=== PATIENT | female | born 1990 | race Caucasian/White ===

== ENCOUNTER 2024-10-23 19:51 | Emergency (ER) | payer MEDICAID, SELFPAY ==
--- NOTE | 2024-10-23 | ECG_ITS ---
Test Reason : syncope/abd pain Blood Pressure : */* mmHG Vent. Rate : 107 BPM Atrial Rate : 107 BPM P-R Int : 118 ms QRS Dur : 86 ms QT Int : 400 ms P-R-T Axes : 77 61 31 degrees QTcB Int : 534 ms Sinus tachycardia Prolonged QT Abnormal ECG No previous ECGs available Referred By: Generic ED Physician Electronically Signed By: JADE ALY MD
--- NOTE | ~2024-10-23 | CT_ITS ---
CLINICAL HISTORY: Lower abd pain and tenderness, hx of trena CT abdomen and pelvis with contrast Comparison: None provided Findings: No consolidation or effusion. Small bilateral renal cysts are present. No hydronephrosis. Gallbladder is absent. Liver, spleen and pancreas are unremarkable. No bowel wall thickening. No bowel obstruction, pneumoperitoneum, or pneumatosis. T-shaped IUD within the uterus in expected position. No acute fracture. IMPRESSION: No acute findings. This document has been electronically signed by: Andre Brown MD on 10/24/2024 00:57:38
[2024-10-23 20:02] VITALS: BP 142/84; BP 159/94; PULSE 116; PULSE 117; RESP 20; TEMP 36.3; O2SAT 100; O2SAT 99; BMI 24.0
[2024-10-23 21:10] LABS: Alanine Aminotransferase 68 U/L (0-31); Albumin Level 5.7 g/dL (3.5-5.0); Alkaline Phosphatase 99 U/L (39-117); Anion Gap 21 (12-20); Aspartate Amino Transferase 81 U/L (5-31); Blood Urea Nitrogen 21 mg/dL (9-16); Calcium 9.9 mg/dL (8.4-10.2); Carbon Dioxide 24 mmol/L (22-29); Chloride 98 mmol/L (96-108); Creatinine Clr Calc Pharmacy 92.0; Estimated Glomerular Filt Rate > 60; Potassium 2.7 mmol/L (3.3-5.1); Sodium 140 mmol/L (135-145); Total Protein 8.8 g/dL (6.5-8.0)
--- NOTE | 2024-10-23 21:22 | ED_ITS ---
HPI - General Adult General Chief complaint: Abdominal Pain Stated complaint: vomiting x3 days Time Seen by Provider: 10/23/24 21:19 History of Present Illness ED Provider: Sara THOMAS narrative: The patient is a 34-year-old female who lives in the [facility]. She is visiting this weekend with some friends. She is traveling with her . The patient states that she has been having problems with intermittent abdominal pains for a long time. she had her gallbladder removed in March of 2024 to see if this would help these episodes of pain. She has continued to have episodes of pain since the surgery. She has had approximately 4 or 5 episodes of pain since the surgery. Her last episode was a few weeks ago. At that time she was seen at the emergency room at [facility] in [place]. This having symptoms of abdominal pain, nausea, and vomiting for approximately 4 days. She finally came to the emergency department for evaluation tonight. No fever. This episode is similar to previous episodes. Related Data Previous Rx's ?Medication ?Instructions ?Recorded ondansetron 4 mg disintegrating 4 mg PO Q6H PRN nausea and 10/24/24 tablet vomiting #10 tabs potassium chloride 10 mEq 40 meq (4 x 10 mEq) PO BID 7 days 10/24/24 capsule,extended release #56 caps Allergies Allergy/AdvReac Type Severity Reaction Status Date / Time ketorolac (From Toradol) AdvReac Unknown Verified 10/23/24 22:29 Review of Systems 2 Review of Systems: Yes all other systems are reviewed and are negative Physical Exam ED Vital Signs: Vital Signs - 24 hr 10/23/24 20:02 10/23/24 23:39 10/23/24 23:43 Temperature 97.3 F 98.4 F Pulse Rate 116 H 88 Respiratory Rate 20 17 17 Blood Pressure 159/94 H 132/78 Pulse Oximetry 99 99 Oxygen Delivery Method Room Air Room Air 10/24/24 02:20 10/24/24 02:20 Temperature 98.4 F 98.4 F Pulse Rate 81 81 Respiratory Rate 17 17 Blood Pressure 131/78 131/78 Pulse Oximetry 99 99 Oxygen Delivery Method Room Air Room Air BMI result Body Mass Index 24.0 Const Other: The patient is a 34-year-old woman who was awake and alert. She looks as if she might be somewhat uncomfortable. Orientation/consciousness: patient oriented x3 HENMT Other: The face is symmetrical. ?Mucous membranes moist. Eyes Other: Pupils are round equal, conjunctivae are clear, extraocular movements intact Neck Neck: Yes normal visual inspection and Yes full ROM Resp Effort & Inspection: normal respiratory effort Auscultation: clear to auscultation bilaterally Cardio Rate: regular rate Rhythm: regular rhythm Heart sounds: S1 normal heart sound present and S2 normal heart sound present GI Other: The patient has some lower abdominal tenderness without definite rebound or guarding. Back/Spine/Pelvis Other: No CVA percussion tenderness Skin Other: Skin was dry and unremarkable Neuro General: patient oriented x3, gait normal, tone normal, moves all extremities, no focal motor deficits and CN's II-XI intact bilaterally Extrem Other: There is no calf swelling or tenderness. No asymmetry. No peripheral edema. Medications Administered Discontinued Medications Generic Name Dose Route Start Last Admin Trade Name Freq PRN Reason Stop Dose Admin Diphenhydramine HCl 25 mg 10/23/24 21:22 10/23/24 21:55 Diphenhydramine Hcl 50 Mg/Ml Vial IVPUSH 10/23/24 21:23 25 mg ONCE ONE Administration Diphenhydramine HCl 25 mg 10/23/24 23:29 10/23/24 23:38 Diphenhydramine Hcl 50 Mg/Ml Vial IVPUSH 10/23/24 23:30 25 mg ONCE ONE Administration Hydromorphone HCl 1 mg 10/23/24 23:29 10/23/24 23:39 Hydromorphone Hcl 1 Mg/Ml Syringe IVPUSH 10/23/24 23:30 1 mg ONCE ONE Administration Protocol Potassium Chloride/Sodium Chloride 40 meq in 1,000 mls @ 250 mls/hr 10/23/24 21:30 10/24/24 02:13 Kcl 40 Meq In 0.9 % Sodium Chl IV 10/24/24 01:29 Infused .Q4H LUPIS Infusion Iohexol 85 ml 10/23/24 23:48 10/23/24 23:48 Iohexol 350 Mg/Ml 100 Ml Infus..Btl IV 10/23/24 23:49 85 ml ONCE ONE Administration Morphine Sulfate 4 mg 10/23/24 21:22 10/23/24 21:55 Morphine Sulfate 4 Mg/Ml Cartridge IVPUSH 10/23/24 21:23 4 mg ONCE ONE Administration Protocol Potassium Chloride 40 meq 10/24/24 02:00 10/24/24 02:11 Potassium Chloride Er 20 Meq Tab.Er.Prt PO 10/24/24 02:01 40 meq ONCE ONE Administration Medical Decision Making Medical Decision Making [facility] Narrative: The patient is a 34-year-old female who presents with a history of 4 days of lower abdominal pain and vomiting. She is here with her . They are visiting from the [place] area. She describes having multiple similar episodes in the past. She had a cholecystectomy in March which I think was done in part to try to address these episodes. She continues to have episodes of abdominal pain and vomiting despite the cholecystectomy. She seemed somewhat restlessly uncomfortable. She I had labs that showed a potassium of 2.7. An EKG showed a somewhat prolonged QT see. She was initially given 4 mg of morphine IV and 25 mg of diphenhydramine IV together with IV fluids. She did not get much relief from this. She was subsequently given 1 mg of hydromorphone IV and another 25 mg of diphenhydramine IV. After that she felt considerably better. She was also given IV fluids containing potassium. Ultimately she felt considerably better and felt comfortable being discharged. Her workup included a CBC with a white blood count of 13.6. Her CRP was 0.84. test is negative. A CT scan of the abdomen and pelvis showed no acute process. The patient was given a dose of oral potassium prior to discharge which she tolerated. She will be discharged with a prescriptions for ondansetron and oral potassium. She will be returning to [place] tomorrow and should follow up with your regular providers. Lab Data 10/23/24 20:42 10/23/24 20:42 Labs: Lab Results 10/23/24 Range/Units 20:42 WBC 13.6 H (4.8-10.8) X10*3/uL RBC 4.93 (4.20-5.50) X10*6/uL Hgb 15.8 (12.0-16.0) g/dl Hct 42.1 (37.0-47.0) % MCV 85.4 (80.0-98.0) fL MCH 32.0 (27.0-33.0) pg MCHC 37.5 H (31.0-35.0) g/dl RDW 12.6 (11.0-16.0) % Plt Count 354 (160-400) X10*3/uL MPV 10.1 (9.4-12.3) fL Immature Gran % (Auto) 0.5 H (0.0-0.4) % Neut % (Auto) 82.5 H (45-73) % Lymph % (Auto) 11.7 L (20-40) % [place] % (Auto) 5.2 (2-11) % Eos % (Auto) 0.0 (0-4) % Baso % (Auto) 0.1 (0-2) % Lymph # (Auto) 1.6 (1.2-4.9) X10*3/uL [place] # (Auto) 0.7 (0.1-1.2) X10*3/uL Eos # (Auto) 0.0 (0.0-0.4) X10*3/uL Baso # (Auto) 0.0 (0.0-0.2) X10*3/uL Abs Immat Gran (auto) 0.07 H (0.00-0.03) X10*3/uL Absolute Neuts (auto) 11.2 H (2.0-8.3) x10*3/uL Absolute Nucleated RBC 0.000 (0.0-0.012) X10*3/uL Nucleated RBC % (auto) 0.0 (0.0-0.2) /100WBC Smear Tech's Comments VERIFIED Sodium 140 (135-145) mmol/L Potassium 2.7 L* (3.3-5.1) mmol/L Chloride 98 (96-108) mmol/L Carbon Dioxide 24 (22-29) mmol/L Anion Gap 21 H (12-20) BUN 21 H (9-16) mg/dL Creatinine 0.73 (0.5-1.4) mg/dL Estim Creat Clear Calc 92.0 Estimated GFR > 60 Random Glucose 124 H (60-115) mg/dL Calcium 9.9 (8.4-10.2) mg/dL Magnesium 2.2 (1.6-2.6) mg/dL Total Bilirubin 1.6 H (0.0-1.0) mg/dL Direct Bilirubin 0.5 (0.0-0.5) mg/dL AST 81 H (5-31) U/L ALT 68 H (0-31) U/L Alkaline Phosphatase 99 (39-117) U/L C-Reactive Protein 0.84 H (< or = 0.50) mg/dL Total Protein 8.8 H (6.5-8.0) g/dL Albumin 5.7 H (3.5-5.0) g/dL Lipase 9 (8-78) U/L Beta HCG, Quant < 2 mIU/mL Discharge Plan Discharge Clinical Impression: Abdominal pain with vomiting Patient Disposition: Home, Self-Care Additional Instructions: Your testing today does not show any dangerous process at work. 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 Your potassium level was somewhat low. I have sent a prescription for several days of supplemental potassium which you may take 2 times a day until done. I have also sent a prescription for ondansetron to your pharmacy on [facility] in [place]. You may use this medication as needed for nausea. I would recommend eating a light diet on Friday and taken clear fluids only. 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 Return to the emergency room if you feel significantly worse. Prescriptions: New ondansetron 4 mg tablet,disintegrating 4 mg PO Q6H PRN (Reason: nausea and vomiting) Qty: 10 0RF potassium chloride 10 mEq capsule, extended release 40 meq PO BID 7 Days Qty: 56 0RF Interventions: ED Discharge Assessment Last Done: 10/24/24 02:20 Discharge Date/Time: 10/24/24 02:29 Print Language: Divehi
[2024-10-23 21:40] LABS: Hematocrit 42.1 % (37.0-47.0); Hemoglobin 15.8 g/dl (12.0-16.0); Imm Gran Abs Auto 0.07 X10*3/uL (0.00-0.03); Imm Gran Pct Auto 0.5 % (0.0-0.4); Lymphocytes Absolute Auto 1.6 X10*3/uL (1.2-4.9); MANUAL DIFF FLAG SCAN; Mean Corpuscular HGB Conc 37.5 g/dl (31.0-35.0); Mean Corpuscular Hemoglobin 32.0 pg (27.0-33.0); Mean Corpuscular Volume 85.4 fL (80.0-98.0); NRBC Abs Auto 0.000 X10*3/uL (0.0-0.012); NRBC Pct Auto 0.0 /100WBC (0.0-0.2); PLT CLUMP 1; Red Blood Count 4.93 X10*6/uL (4.20-5.50); SCAN SMEAR FLAG 1
[2024-10-23 21:44] LABS: Platelet Count 354 X10*3/uL (160-400); White Blood Count 13.6 X10*3/uL (4.8-10.8)
[2024-10-23 22:11] LABS: Lipase 9 U/L (8-78); Magnesium 2.2 mg/dL (1.6-2.6)
[2024-10-23] MEDS: KCl 40 mEq in 0.9 % Sodium Chl 40 MEQ/1,000 ML IV.SOLN 250 MEQ IV (22:16)
--- NOTE | 2024-10-23 23:10 | PC.NURSE ---
this rn assumed care of pt, pt taken to ct at this time, pt offers no complaints at this time. fluids administering at this time
--- NOTE | 2024-10-23 23:19 | PC.NURSE ---
attempted to take pt to ct scan, pt throwing up multiple times in ct, aware, pt returned to room, awaiting new orders
[2024-10-23 23:39] VITALS: RESP 17
[2024-10-23 23:43] VITALS: BP 132/78; PULSE 88; RESP 17; TEMP 36.9; O2SAT 99
--- NOTE | 2024-10-23 23:43 | PC.NURSE ---
pt medicated per mar, tolerated well, pt to ct at this time
[2024-10-23] MEDS: iohexoL 350 MG/ML 100 ML INFUS..BTL 85 ML IV (23:48)
[2024-10-24] MEDS: Potassium Chloride ER 20 MEQ TAB.ER.PRT 40 MEQ PO (02:11)
[2024-10-24 02:20] VITALS: BP 131/78; PULSE 81; RESP 17; TEMP 36.9; O2SAT 99
== END 2024-10-24 02:29 | disposition home or self-care (01) ==
PROVIDERS: Emergency Provider Emergency Medicine
DX: R10.9 Unspecified abdominal pain (principal); R11.10 Vomiting, unspecified; Z90.49 Acquired absence of other specified parts of digestive tract
CPT/HCPCS: 36415; 74177; 80053; 82248; 83690; 83735; 84702; 85025; 86140; 93005; 96365; 96366; 96375; 96376; 99285; J1171; J1200; J2270; J3480; Q9967

== ENCOUNTER → 2024-10-23 20:13 | Outpatient (BNV) | payer MEDICAID, SELFPAY | PROVIDERS: Emergency Provider Emergency Medicine; Visit Provider Internal Medicine Cardiovascular Disease | DX: R00.0 Tachycardia, unspecified (principal) | CPT/HCPCS: 93010 ==

== ENCOUNTER → 2024-10-23 22:45 | Outpatient (BNV) | payer MEDICAID, SELFPAY | PROVIDERS: Emergency Provider Emergency Medicine; Visit Provider Radiology Diagnostic Radiology | DX: N28.1 Cyst of kidney, acquired (principal) | CPT/HCPCS: 74177 ==